=== PATIENT | male | born 1980 | race Caucasian/White ===

== ENCOUNTER 2022-07-26 08:10 | Emergency (ER) | payer SELFPAY ==
--- NOTE | ~2022-07-26 | XR_ITS ---
EXAMINATION: XR SHOULDER, RIGHT CLINICAL INFORMATION: Right shoulder pain COMPARISON: None available. TECHNIQUE: AP external rotation, Grashey, scapular Y, and axillary views of the right shoulder. FINDINGS: The bones and soft tissues are normal. No fracture. Glenohumeral and acromioclavicular alignment is anatomic with normal joint space. No abnormal soft tissue calcifications. XR/XR shoulder RT min 2V IMPRESSION: Normal right shoulder.
[2022-07-26 08:16] VITALS: BP 140/92; PULSE 82; RESP 20; TEMP 36.6; O2SAT 98; BMI 29.8
--- NOTE | 2022-07-26 08:31 | ED.EXTPRO ---
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 Denies any previous issues with right shoulder/right upper extremity. Patient denies chest pain, shortness of breath, fevers, chills, headache, vision changes, dizziness, fevers, chills, nausea, vomiting, abdominal pain. Related Data Previous Rx's Medication Instructions Recorded cyclobenzaprine 10 mg tablet 10 mg PO BEDTIME PRN muscle spasm 07/26/22 #7 tabs ketorolac 10 mg tablet 10 mg PO TID PRN pain 5 days #15 07/26/22 tabs lidocaine 5 % topical patch 1 patch topical DAILY PRN pain #15 07/26/22 ea Allergies Allergy/AdvReac Type Severity Reaction Status Date / Time Unable to Assess Allergy Unverified 07/26/22 08:32 Review of Systems Review of Systems: Constitutional : No Weight loss, No Fever, No Chills, No Fatigue, No Malaise ENT/Mouth : No sore throat, No Rhinorrhea Eyes: No Eye Pain, No Swelling, No Redness Cardiovascular : No Chest Pain, No SOB, No Dyspnea on Exertion, No Orthopnea, No Edema, No Palpitations Respiratory : No Cough, No Sputum, No Wheezing Gastrointestinal : No Nausea, No Vomiting, No Diarrhea, No Constipation, No abdominal Pain, No Hematochezia, No Melena Genitourinary : No Dysuria, No Urinary Frequency, No Hematuria, Musculoskeletal : + joint pain, No Myalgias, + Joint Swelling Skin : No Skin Lesions, No rash Neuro : No Weakness, No Numbness, No Dizziness, No Headache Psych : No Anxiety/Panic, No Depression All other systems reviewed and are negative Yes all other systems are reviewed and are negative PMFSH Past Medical History Attestation statement: The following information was validated with the patient. Source: old records reviewed and nursing notes reviewed Social History Social History Smoked in Last 30 Days: Yes Use of substances other than those prescribed or required for medical reasons: Yes Substance Use Type: Marijuana Substance Use Frequency: Daily Advance Directives: No Advance Directives Information Provided: Yes Physical Exam Vital Signs: Vital Signs: Last Vital Signs Temp 98.3 F 07/26/22 09:13 Pulse 69 07/26/22 09:13 Resp 16 07/26/22 09:13 BP 145/89 H 07/26/22 09:13 Pulse Ox 96 07/26/22 09:13 O2 Del Method Room Air 07/26/22 09:13 BMI result Body Mass Index 29.8 vss Appearance: Alert.? Oriented X3.? No acute distress.? Head: Normocephalic, atraumatic, no step-offs or deformities Eyes: Pupils equal, round and reactive to light.? CVS: Normal heart rate and rhythm.? Pulses normal.? Respiratory: No respiratory distress.? Breath sounds normal.? Abdomen: Soft and nontender.? Skin: Skin warm and dry.? Normal skin color.? Normal skin turgor.?+ TTP to right scapula, trap and deltoid region. 2+ radial pulses equal and b/l. No wrist drop. Normal cap refill to b/l UE digits. Extremities: No lower extremity edema.? No calf ttp. 5/5 strength to bilateral upper and lower extremities Neuro: Oriented X 3.? No motor deficit.? No sensory deficit. CN 2-12 intact. Normal finger to nose, heel to paul, steady tandem gait. Normal hand drip. NIHSS-0 Course Reevaluation(s) Reevaluation #1: CBC appears to be within normal limits. Chemistry no acute electrolyte abnormalities requiring intervention, BUN slightly elevated likely secondary to poor p.o. intake will encourage p.o. hydration. Patient tolerating p.o.. Troponin negative, EKG nonischemic unlikely ACS. Again patient PERC negative unlikely PE. HEART score low score, risk of MACE of 0.9-1.7% no need for repeat trop. Patient given Toradol, cyclobenzaprine and Lidoderm patch will be discharged home on same. I suspect this is musculoskeletal in origin. Educated patient on diagnosis and treatment plan, answered all question, patient verbalizes understanding. At this time patient will be discharged home, advised to return with new or worsening symptoms. Educated on worrisome signs and symptoms and when to return. At this time I feel comfortable discharge home. Time: 09:26 Reevaluation #2: On re-evaluation patient states he is feeling better. Medications Administered Discontinued Medications Generic Name Dose Route Start Last Admin Trade Name Cesar PRN Reason Stop Dose Admin Cyclobenzaprine HCl 10 mg 07/26/22 08:43 07/26/22 08:56 Cyclobenzaprine Hcl 10 Mg Tablet PO 07/26/22 08:44 10 mg ONCE ONE Administration Ketorolac Tromethamine 30 mg 07/26/22 08:46 07/26/22 08:57 Ketorolac Tromethamine 15 Mg/Ml Vial IVPUSH 07/26/22 08:47 30 mg ONCE ONE Administration Lidocaine 1 patch 07/26/22 08:43 07/26/22 09:02 Lidocaine 4 % Patch Adh..Patch TRANSDERMA 07/26/22 08:44 1 patch ONCE ONE Administration Protocol Medical Decision Making Medical Decision Making [facility] Narrative: 0900 41 year old male presents w/ r. shoulder pain sp gardening/ doing yard work PE w/ skin warm and dry.? Normal skin color.? Normal skin turgor.?+ TTP to right scapula, trap and deltoid region. 2+ radial pulses equal and b/l. No wrist drop. Normal cap refill to b/l UE digits. Concerns for muscle spasm. Unlikely typical presentation for ACS. Unlikely neurovascular compromise or threatened limb. Unlikely fracture dislocation. I do not suspect dissection. Plan imaging basic labs. Differential Diagnosis Differential Diagnoses: The differential diagnosis associated with the presentation includes Concerns for muscle spasm. Unlikely typical presentation for ACS. Unlikely neurovascular compromise or threatened limb. Unlikely fracture dislocation. I do not suspect dissection. Admission/Observation Consideration of admission/observation: Escalation of care including admission/observation considered Unlikely Lab Data [facility] Lab Attestation statement: I reviewed the patient's lab results. 07/26/22 08:52 07/26/22 08:52 Labs: Lab Results 07/26/22 07/26/22 07/26/22 Range/Units 08:52 08:52 08:52 WBC 8.1 (4.8-10.8) X10*3/uL RBC 5.21 (4.60-5.80) X10*6/uL Hgb 15.8 (14.0-18.0) g/dl Hct 46.7 (42.0-52.0) % MCV 89.6 (80.0-98.0) fL MCH 30.3 (27.0-33.0) pg MCHC 33.8 (31.0-36.0) g/dl RDW 12.9 (11.0-16.0) % Plt Count 294 (160-400) X10*3/uL MPV 8.7 L (9.4-12.4) fL Immature Gran % (Auto) 0.2 (0.0-0.4) % Neut % (Auto) 66.1 (45-73) % Lymph % (Auto) 23.3 (20-40) % [place] % (Auto) 8.0 (2-11) % Eos % (Auto) 2.2 (0-4) % Baso % (Auto) 0.2 (0-2) % Lymph # (Auto) 1.9 (1.2-4.9) X10*3/uL [place] # (Auto) 0.7 (0.1-1.2) X10*3/uL Eos # (Auto) 0.2 (0.0-0.4) X10*3/uL Baso # (Auto) 0.0 (0.0-0.2) X10*3/uL Abs Immat Gran (auto) 0.02 (0.00-0.03) X10*3/uL Absolute Neuts (auto) 5.4 (2.0-8.3) x10*3/uL Absolute Nucleated RBC 0.000 (0.0-0.012) X10*3/uL Nucleated RBC % (auto) 0.0 (0.0-0.2) /100WBC Sodium 140 (135-145) mmol/L Potassium 4.4 (3.3-5.1) mmol/L Chloride 105 (96-108) mmol/L Carbon Dioxide 26 (22-29) mmol/L Anion Gap 13 (12-20) BUN 21 H (9-16) mg/dL Creatinine 0.84 (0.5-1.4) mg/dL Estim Creat Clear Calc 134.7 Estimated GFR > 60 Random Glucose 107 (60-115) mg/dL Calcium 9.6 (8.4-10.2) mg/dL Total Bilirubin 0.6 (0.0-1.0) mg/dL AST 22 (5-37) U/L ALT 27 (0-40) U/L Alkaline Phosphatase 105 (39-117) U/L Troponin I High Sens < 2.7 (<3.5-35.0) ng/L Total Protein 7.7 (6.5-8.0) g/dL Albumin 4.3 (3.5-5.0) g/dL Independent Interpretation I performed an independent interpretation of an: Plain X-Ray Radiology Impression Discussion of test interpretation with radiology: I have reviewed the radiologist's reading. Core Measures AMI core measures followed: Yes Measure exclusions: not indicated Critical Care Time Critical Care Time Critical Care Time: No Discharge Plan Discharge Clinical Impression: Trapezius muscle spasm, Acute pain of right shoulder Patient Disposition: Home, Self-Care Instructions: Muscle Spasm (ED), Shoulder Pain (ED) Additional Instructions: Take your medications as prescribed. If you were prescribed antibiotics today, it is important that you take your medication to their entirety, do not skip any doses, do not finish them early. Follow-up with your primary care provider this week. Return to the emergency department with new or worsening symptoms. Such as fevers, chills, chest pain, shortness of breath, nausea, vomiting, dizziness, headache, vision changes, lethargy In case of emergency call 911 Toradol has been sent to your pharmacy, you tolerated this well in the department. Please take this as prescribed do not take this with ibuprofen, or other NSAIDs, do not mix this with alcohol. Side effects of this medication including increased risk for bleeding and possible kidney injury. Prescriptions: New cyclobenzaprine 10 mg tablet 10 mg PO BEDTIME PRN (Reason: muscle spasm) Qty: 7 0RF ketorolac 10 mg tablet 10 mg PO TID PRN (Reason: pain) 5 Days Qty: 15 0RF lidocaine 5 % adhesive patch,medicated 1 patch topical DAILY PRN (Reason: pain) Qty: 15 0RF Rx Instructions: leave on most painful area for up to 12 hrs Referrals: Physician,None [Primary Care Provider] - 2 days
--- NOTE | 2022-07-26 08:43 | ECG_ITS ---
Test Reason : shoulder pain Blood Pressure : / mmHG Vent. Rate : 070 BPM Atrial Rate : 070 BPM P-R Int : 140 ms QRS Dur : 096 ms QT Int : 392 ms P-R-T Axes : 026 034 043 degrees QTc Int : 423 ms Normal sinus rhythm Normal ECG No previous ECGs available Referred By: Clover Arriaza Electronically Signed By:ANAHI DECKER MD
[2022-07-26] MEDS: Cyclobenzaprine HCl 10 MG TABLET PO (08:56)
[2022-07-26] MEDS: Ketorolac Tromethamine 15 MG/ML VIAL 30 MG IVPUSH (08:57)
[2022-07-26 08:58] LABS: MANUAL DIFF FLAG NO
[2022-07-26 09:02] LABS: Basophils Percent Auto 0.2 % (0-2); Eosinophils Absolute Auto 0.2 X10*3/uL (0.0-0.4); Eosinophils Percent Auto 2.2 % (0-4); Hematocrit 46.7 % (42.0-52.0); Hemoglobin 15.8 g/dl (14.0-18.0); Imm Gran Abs Auto 0.02 X10*3/uL (0.00-0.03); Imm Gran Pct Auto 0.2 % (0.0-0.4); Lymphocytes Absolute Auto 1.9 X10*3/uL (1.2-4.9); Lymphocytes Percent Auto 23.3 % (20-40); Mean Corpuscular HGB Conc 33.8 g/dl (31.0-36.0); Mean Corpuscular Hemoglobin 30.3 pg (27.0-33.0); Mean Corpuscular Volume 89.6 fL (80.0-98.0); Mean Platelet Volume 8.7 fL (9.4-12.4); Monocytes Absolute Auto 0.7 X10*3/uL (0.1-1.2); Neutrophils Absolute Auto 5.4 x10*3/uL (2.0-8.3); Neutrophils Percent Auto 66.1 % (45-73); Platelet Count 294 X10*3/uL (160-400); Red Blood Count 5.21 X10*6/uL (4.60-5.80); Red Cell Distribution Width 12.9 % (11.0-16.0); White Blood Count 8.1 X10*3/uL (4.8-10.8)
[2022-07-26] MEDS: Lidocaine 4 % Patch ADH..PATCH 1 PATCH TRANSDERMA (09:02)
[2022-07-26 09:13] VITALS: BP 145/89; PULSE 69; RESP 16; TEMP 36.8; O2SAT 96
[2022-07-26 09:16] LABS: Alanine Aminotransferase 27 U/L (0-40); Albumin Level 4.3 g/dL (3.5-5.0); Alkaline Phosphatase 105 U/L (39-117); Anion Gap 13 (12-20); Aspartate Amino Transferase 22 U/L (5-37); Bilirubin Total 0.6 mg/dL (0.0-1.0); Blood Urea Nitrogen 21 mg/dL (9-16); Calcium 9.6 mg/dL (8.4-10.2); Carbon Dioxide 26 mmol/L (22-29); Chloride 105 mmol/L (96-108); Creatinine Clr Calc Pharmacy 134.7; Estimated Glomerular Filt Rate > 60; Glucose Random 107 mg/dL (60-115); Potassium 4.4 mmol/L (3.3-5.1); Sodium 140 mmol/L (135-145); Total Protein 7.7 g/dL (6.5-8.0)
[2022-07-26 09:23] LABS: Troponin-I High Sensitivity < 2.7 ng/L (<3.5-35.0)
== END 2022-07-26 09:39 | disposition home or self-care (01) ==
PROVIDERS: Physician Assistant; Emergency Provider Emergency Medicine
DX: M25.511 Pain in right shoulder (principal); G89.29 Other chronic pain; M62.838 Other muscle spasm; Z79.899 Other long term (current) drug therapy
CPT/HCPCS: 36415; 73030; 80053; 84484; 85025; 93005; 96374; 99284; 99285; J1885

== ENCOUNTER 2022-08-09 08:26 | Emergency (ER) | payer SELFPAY ==
[2022-08-09 08:29] VITALS: BP 149/91; PULSE 91; RESP 20; TEMP 36.6; O2SAT 98; BMI 29.6
--- NOTE | 2022-08-09 08:34 | ED.EXTPRO ---
HPI - Extremity Problem General Chief complaint: Extremity Problem Stated complaint: R Arm Shoulder Pain Time Seen by Provider: 08/09/22 08:32 History of Present Illness HPI Narrative: 42-year-old male who presents emergency department for evaluation of right shoulder and right arm pain and numbness. The patient he was digging holes with a shovel on 07/25/2022. He states that the next day when he woke up he had severe pain in his right shoulder with pain radiating to his right elbow and a tingly sensation in his right arm. The patient was seen in the emergency department on 07/26/2022 I did review this record. The patient had a negative cardiac workup. He had x-rays of the right shoulder which were normal. He was treated in the emergency department with Toradol and a lidocaine patch which she states did not changes pain. He was prescribed Toradol but he did not get this medication. He states that he has not been taking any medications for his discomfort. He he has been having light duty at work with limited use of his right arm. He states that the end the day he has pain in his right shoulder and scapular area. He also has pain along his right elbow area. He states that when he wakes up in the morning the pain is worse. Patient is concerned that he may have a pinched nerve or a significant injury that is getting worse therefore he came back to the emergency department for evaluation. Related Data Previous Rx's Medication Instructions Recorded cyclobenzaprine 10 mg tablet 10 mg PO BEDTIME PRN muscle spasm 07/26/22 #7 tabs ketorolac 10 mg tablet 10 mg PO TID PRN pain 5 days #15 07/26/22 tabs lidocaine 5 % topical patch 1 patch topical DAILY PRN pain #15 07/26/22 ea Allergies Allergy/AdvReac Type Severity Reaction Status Date / Time No Known Allergies Allergy Verified 08/09/22 08:31 Review of Systems Review of Systems: Yes all other systems are reviewed and are negative [facility] Past Medical History [facility] Narrative: Past medical history: None. Social history: Patient works in a warehouse and drives electric [employer] Social History Social History Substance Use Type: Marijuana Advance Directives: No Advance Directives Information Provided: No Physical Exam Vital Signs: Vital Signs: Last Vital Signs Temp 97.9 F 08/09/22 08:29 Pulse 91 08/09/22 08:29 Resp 20 08/09/22 08:29 BP 149/91 H 08/09/22 08:29 Pulse Ox 98 08/09/22 08:29 O2 Del Method Room Air 08/09/22 08:29 BMI result Body Mass Index 29.6 General: Awake, alert, male patient, pleasant, cooperative in no distress. Extremities: The patient has no ecchymosis or skin changes over his right or left shoulder. The patient has no palpable tenderness over the deltoid or shoulder area however he does have some palpable tenderness over the medial aspect of the right scapula. Patient has full range of motion of the right shoulder passively and actively with no significant pain with internal or external rotation. He does have tenderness palpation over the right lateral epicondyle of the elbow. There is no increased warmth or swelling of the joints, no joint effusions noted. Medical Decision Making Medical Decision Making [facility] Narrative: 42-year-old male who presents emergency department for evaluation of 2 weeks of right shoulde/scapular pain and elbow pain. Pain started after he was digging holes, with no injury while he was digging but pain the next morning when he woke up. Patient was seen in the emergency department on 07/26/2022 with a negative cardiac workup and normal x-ray of the right shoulder. He has not been taking any pain medications, he has been able to work but does have light duty with limited use of his right shoulder. Despite this after work he has significant right shoulder/scapular and right elbow discomfort. His examination is reassuring, given his description of his pain is injury I suspect that he has a right shoulder strain and right elbow lateral epicondylar tendinitis. I did discuss this with the patient. Patient was given a note remain on light duty for 1 more week. He was instructed to take ibuprofen 400 mg 3 times a day for the next 5 days then after that as needed for pain. He was advised to ice his shoulder and elbow at the end the day for 15 minutes every hours until he goes to bed. He was given printed and verbal instructions and discharged home. Differential Diagnosis Differential Diagnoses: The differential diagnosis associated with the presentation includes Differential diagnosis includes but is not limited to right rotator cuff injury, right capsular injury, right shoulder strain, right scapular strain, right elbow tendinitis Discharge Plan Discharge Clinical Impression: Right elbow tendinitis Right shoulder strain Qualifiers: Encounter type: subsequent encounter Qualified Code(s): S46.911D - Strain of unspecified muscle, fascia and tendon at shoulder and upper arm level, right arm, subsequent encounter Patient Disposition: Home, Self-Care Additional Instructions: Your x-ray of the right shoulder from your last visit was normal, which is reassuring Your exam today revealed full range of motion of your shoulder passively and against resistance with no pain. You did have pain with palpation/pressure over your right lateral elbow which is consistent with inflammation of the tendon of the elbow (elbow tendonitis) Based on your description of your injury, you most likely overuse/strain a muscle in your shoulder or shoulder blade. This will heal but it sometimes takes 2-3 weeks before you get better. Take ibuprofen 200 mg pills, 2 pills every 6 hours (3 times a day) for the next 4-5 days and then 3 times a day as needed for pain. Take Tylenol (acetaminophen) 500 mg pills, 2 pills every 6 hours as needed for pain. At the end of the day, you should ice your right elbow and your right shoulder for 15 minutes every hours for 3-4 hours before you go to bed to reduce the inflammation in these areas. You can return to work but you need to remain on light duty with limited use of your right arm for 1 week to help your strained the muscle heal. Follow-up with your doctor in 2 days. Please return to the emergency department if your symptoms get worse or if you develop any symptoms that are concerning to you. See work note Prescriptions: No Action cyclobenzaprine 10 mg tablet 10 mg PO BEDTIME PRN (Reason: muscle spasm) Qty: 7 0RF ketorolac 10 mg tablet 10 mg PO TID PRN (Reason: pain) 5 Days Qty: 15 0RF lidocaine 5 % adhesive patch,medicated 1 patch topical DAILY PRN (Reason: pain) Qty: 15 0RF Rx Instructions: leave on most painful area for up to 12 hrs Stand Alone Forms: Work/School Release
[2022-08-09 09:27] VITALS: BP 139/80; PULSE 93; RESP 14; TEMP 36.9
== END 2022-08-09 09:29 | disposition home or self-care (01) ==
PROVIDERS: Emergency Provider Emergency Medicine Emergency Medical Services
DX: M77.11 Lateral epicondylitis, right elbow (principal); M25.511 Pain in right shoulder; S46.911D Strain of unspecified muscle, fascia and tendon at shoulder and upper arm level, right arm, subsequent encounter; X50.0XXD Overexertion from strenuous movement or load, subsequent encounter
CPT/HCPCS: 99284